=== PATIENT | male | born 1950 | race Caucasian/White ===

== ENCOUNTER 2017-06-15 14:25 | Day surgery (SDC) | payer OTHER ==
[~2017-06-15 14:25] MED LIST: ASPI325T PO; ATOR20TA42 PO; CLOP75TA PO; LORTA5 PO; LOSA100T PO; METO50CR PO; NITR.4 SL; RAMI2.5C29 PO
[2017-06-15 14:41] VITALS: BP 168/92; PULSE 65; RESP 20; TEMP 97.7; O2SAT 97
--- NOTE | 2017-06-16 09:53 | RADRPT ---
EXAM DATE/TIME: 06/15/2017 14:49 [facility] COMPARISON : INDICATIONS : MICROWAVE ABLATION LIVER OBJECTIVE: Temperature: 97.7 Heart Rate: 65 Blood Pressure: 168/92 Respiratory: 20 Oximetry: 97 PNEUMONIA VACCINE: NO HISTORY OF PRESENT ILLNESS: Mr. Reyes is a very pleasant 67-year-old male with history of right primary rectal CA status post r ight colectomy 5 by course of chemotherapy 11/2015-05/2016. He was noted to have metastatic di sease to the liver and is status post radiosurgery completed 08/2016. Recent imaging demonstrates int erval progression of disease in the liver. He is currently asymptomatic and denies any significant un intentional weight loss. He has an excellent functional status, ECOG 0. PAST MEDICAL HISTORY : 1. Cerebrovascular disease. 2. Hypercholesterolemia. 3. Hypertension. 4. Renal calculi. 5. Carcinoma, colon. PAST SURGICAL HISTORY : 1. CABG 2. Coronary artery stent. 3. COLON RESECTION SOCIAL HISTORY : ALLERGIES: NKDA MEDICATIONS: 1. LIPITOR 20 mg q.d. 2. Plavix (Glopidogrel Bisulfate) 75 mg q.d. 3. LOSARTAN 25 mg q.d. 4. Lopressor (Metoprolol) 50 mg q.d. PHYSICAL EXAMINATION: Gen: NAD Abdomen: Soft, NTND. IMAGING STUDIES: MRI 04/15/2017 and PET/CT 04/29/2017 hours view. There are 2 focal hepatic masses in segments 4 and segm ents 6 with significant hypermetabolism corresponding to regions of enhancement on MRI exam. The port al vein is patent. No evidence for extrahepatic metastatic disease. ASSESSMENT: 67 -year-old male with right-sided primary colon CA status post right colectomy with one cycle of ganga motherapy and radiotherapy to hepatic masses in segments 4 and 6 with interval progression of disease in the liver. He has an excellent functional status and is motivated to pursue curative intent invas abena procedures. He has a surgical oncology appointment next week with Dr. Spears in [place] for possibl e hepatic resection. He was encouraged to follow through with surgical appointment as surgical resect ion remains the gold standard for treatment of limited hepatic metastatic disease. Percutaneous ablat ion is an excellent second option although difficulty visualizing the lesions on noncontrast CT exami nations will make ablation procedure challenging. Extensive discussion regarding the risks and benefits of Dominick with ablation. All questions were an swered. PLAN: Patient is encouraged to follow through with surgical appointment with Dr. Spears next week. Percutaneo us microwave ablation is a reasonable second alternative to surgical resection and can be offered if patient is not an ideal surgical candidate. TIME SPENT: 20 minutes Lv Adan MD on June 16, 2017 at 9:20 Board Certified Radiologist. This report was verified electronically.
== END 2017-06-15 16:00 | disposition home or self-care (01) ==
LOC: HROP 14:25 → HRIP 14:29 → HROP 16:00
PROVIDERS: ATTEND Radiology Radiation Oncology
DX: C78.7 Secondary malignant neoplasm of liver and intrahepatic bile duct (principal); Z92.21 Personal history of antineoplastic chemotherapy; Z85.038 Personal history of other malignant neoplasm of large intestine; E78.00 Pure hypercholesterolemia, unspecified; I10 Essential (primary) hypertension; Z87.442 Personal history of urinary calculi; Z95.1 Presence of aortocoronary bypass graft; Z95.5 Presence of coronary angioplasty implant and graft
CPT/HCPCS: 99213; G0463